=== PATIENT | male | born 1960 | race Caucasian/White ===

== ENCOUNTER 2025-06-07 09:38 | Emergency (ER) | payer OTHER ==
[2025-06-07 10:42] LABS: BASOPHILS ABSOLUTE AUTO 0.04 K/uL (0.00-0.10); BASOPHILS PERCENT AUTO 0.7 % (0.1-1.3); EOSINOPHILS ABSOLUTE AUTO 0.18 K/uL (0.00-0.40); EOSINOPHILS PERCENT AUTO 3.2 % (0.0-5.4); IMMATURE GRAN PERCENT AUTO 0.4 % (0.0-0.7); LYMPHOCYTES ABSOLUTE AUTO 1.32 K/uL (0.8-3.3); LYMPHOCYTES PERCENT AUTO 23.2 % (11.4-47.7); MONOCYTES ABSOLUTE AUTO 0.38 K/uL (0.20-0.90); MONOCYTES PERCENT AUTO 6.7 % (3.3-12.6); NEUTROPHILS ABSOLUTE AUTO 3.75 K/uL (1.0-7.6); NEUTROPHILS PERCENT AUTO 65.8 % (40.0-78.1); PLATELET COUNT,PLT 193 K/uL (130-375); RED BLOOD CELL COUNT 4.75 M/uL (4.14-5.76); WHITE BLOOD CELL COUNT,WBC 5.7 K/uL (3.2-11.0)
[2025-06-07 10:48] LABS: IMMATURE GRAN ABSOLUTE AUTO 0.02 K/uL (0.00-0.23)
[2025-06-07] MEDS: Iopamidol 612 MG/ML 100 ML Bottle IV ONE (11:15)
[2025-06-07] MEDS: Sodium Chloride 0.9% 10 ML Syringe FLUSH ONE (11:15)
[2025-06-07 11:18] LABS: ALANINE AMINOTRANSFERASE,ALT 20 U/L (12-78); ASPARTATE AMNIOTRANSFERASE,AST 12 U/L (15-37); BILIRUBIN TOTAL 0.4 mg/dL (0.2-1.0); BLOOD UREA NITROGEN,BUN 13 mg/dL (7-18); CARBON DIOXIDE,CO2 27 mmol/L (21-32); CHLORIDE,CL 103 mmol/L (100-108); CREATININE 1.0 mg/dL (0.8-1.3); EST CRCL DRUG DOSING (CG) 89.19 mL/min; ESTIMATED GFR 84 mL/min (>60); GLUCOSE RANDOM 146 mg/dL (74-106); POTASSIUM,K 4.0 mmol/L (3.6-5.2); PROTEIN TOTAL,TP 7.2 g/dL (6.4-8.2); SODIUM,NA 136 mmol/L (140-148)
[2025-06-07 11:22] LABS: A/G RATIO 1.0 (1.2-2.2)
== END 2025-06-07 12:31 | disposition home or self-care (01) ==
LOC: JP.ED 09:38
DX: R10.84 Generalized abdominal pain (principal); I10 Essential (primary) hypertension; E11.9 Type 2 diabetes mellitus without complications; Z79.899 Other long term (current) drug therapy; Z79.84 Long term (current) use of oral hypoglycemic drugs
CPT/HCPCS: 36415; 74177; 80053; 83690; 85025; 99284; J7030; Q9967